=== PATIENT | male | born 1955 | race Caucasian/White ===

== ENCOUNTER 2019-08-11 11:38 | Emergency (ER) | payer OTHER ==
[~2019-08-11] VITALS: Wt 79.0 kg
[~2019-08-11 11:38] MED LIST: ELIM TOP; HYDR-842 PO; PRED20TA PO
[2019-08-11 11:41] VITALS: BP 155/74; PULSE 74; RESP 18
== END 2019-08-11 12:32 | disposition home or self-care (01) ==
LOC: E/R 11:38
DX: B86 Scabies (principal)
CPT/HCPCS: 99282